=== PATIENT | male | born 1985 | race Caucasian/White ===

== ENCOUNTER 2019-01-11 13:49 | Emergency (ER) | payer SELFPAY ==
[~2019-01-11] VITALS: Ht 198.1 cm; Wt 122.5 kg
[~2019-01-11 13:49] MED LIST: ALBU90OI6 INH; AMOX500 PO; Amoxicillin875 MG PO; Augmentin 875-1 EACH PO; CEPH500 PO; CODACE30 PO; Crutch1 EACH MISC; HYDACE5 PO; IBUP400 PO; IBUP800 PO; NAPR500 PO; Naprosyn500 MG PO; OXYACE5T PO; PENVK500 PO; PSEU120ER PO; Percocet 10-321 EACH PO; Prednisone10 MG PO; RXSULTRIDS PO; SULTRIDS PO; TOBDEXOPSU OP; TRAM50 PO; Ultram50 MG PO; Veetids 500500 MG PO; Zithromax250 MG PO
[2019-01-11] MEDS ORDERED: PENVK500 PO (14:13)
== END 2019-01-11 14:24 | disposition home or self-care (01) ==
LOC: ER 13:49
DX: J02.0 Streptococcal pharyngitis (principal); F17.200 Nicotine dependence, unspecified, uncomplicated
CPT/HCPCS: 87430; 99282

== ENCOUNTER 2024-10-19 15:02 | Emergency (ER) | payer OTHER ==
[~2024-10-19] VITALS: Ht 195.6 cm; Wt 113.4 kg
[2024-10-19 15:17] VITALS: BP 170/103
[2024-10-19] MEDS ORDERED: AMOCLA875 PO (17:17)
[2024-10-19] MEDS ORDERED: BETASEPT118 M1 UD (17:17)
== END 2024-10-19 17:30 | disposition home or self-care (01) ==
LOC: ER 15:02
DX: K04.7 Periapical abscess without sinus (principal); K02.9 Dental caries, unspecified
CPT/HCPCS: 41800; 99283-25